=== PATIENT | female | born 2000 | race Hispanic/Latino ===

== ENCOUNTER 2020-04-03 18:05 | Emergency (ER) | payer MEDICAID, OTHER ==
[2020-04-03 18:26] LABS: BASOPHILS % (AUTO) 0.8 % (0.0-5.0); EOSINOPHILS % (AUTO) 0.5 % (0.0-8.0); HEMATOCRIT 37.9 % (36-48); LYMPHOCYTES % (AUTO) 44.9 % (21.0-51.0); MEAN CORPUSCULAR HEMOGLOBIN 30.8 pg (27.0-33.0); MEAN CORPUSCULAR HGB CONC 34.8 g/dL (32.0-36.0); MEAN CORPUSCULAR VOLUME 88.6 fL (80-100); MONOCYTES % (AUTO) 6.5 % (3.0-13.0); NEUTROPHILS % (AUTO) 47.1 % (40.0-77.0); PLATELET COUNT (AUTO) 267 K/uL (130-400); RED BLOOD CELL COUNT(AUTO) 4.28 MIL/uL (4.00-5.50); RED CELL DISTRIBUTION WIDTH 12.6 % (11.0-15.5)
[2020-04-03 18:27] LABS: APPEARANCE,URINE Clear (CLEAR); BILIRUBIN,URINE Negative (NEGATIVE); COLOR,URINE Yellow (YELLOW); GLUCOSE, URINE (UA) Negative (NEGATIVE); HCG,QUAL RESULT NEGATIVE (NEGATIVE); KETONES,URINE Trace mg/dL (NEGATIVE); LEUKOCYTE ESTERASE ,URINE Moderate (NEGATIVE); NITRATE,URINE Negative (NEGATIVE); OCCULT BLOOD,URINE Negative (NEGATIVE); PH,URINE 6.5 (5.0-8.0); PROTEIN,URINE Negative (NEGATIVE)
[2020-04-03] MEDS ORDERED: SODIUM CHLORIDE 0.9% 1000ML 1,000 ML IV ONE (18:31)
[2020-04-03] MEDS ORDERED: ONDANSETRON HCL 4 MG/2 ML VIAL ONE (18:31)
[2020-04-03 18:34] LABS: AMPHET/METH SCREEN,URINE NEGATIVE (NEGATIVE); BARBITURATE SCREEN, URINE NEGATIVE (NEGATIVE); BENZODIAZEPINES SCREEN,URINE NEGATIVE (NEGATIVE); CANNABINOID SCREEN,URINE NEGATIVE (NEGATIVE); COCAINE SCREEN,URINE NEGATIVE (NEGATIVE); OPIATE SCREEN,URINE NEGATIVE (NEGATIVE); PHENCYCLIDINE SCREEN,URINE NEGATIVE (NEGATIVE)
[2020-04-03 18:35] LABS: BACTERIA,URINE Few /HPF (None Seen); MUCUS,URINE Few LPF (None Seen); RBC,URINE 0-1 /HPF (0-1); SQUAMOUS EPITHELIAL CELL,UR Few /HPF (0-2)
[2020-04-03 18:43] LABS: ALBUMIN 4.1 g/dL (3.5-5.0); BILIRUBIN,TOTAL 0.4 mg/dL (0.2-1.0); CREATININE 0.8 mg/dL (0.5-1.5); TOTAL PROTEIN, SERUM 7.5 g/dL (6.0-8.3)
[2020-04-03 19:36] LABS: POTASSIUM 3.3 mmol/L (3.5-5.1)
== END 2020-04-03 21:11 | disposition home or self-care (01) ==
LOC: EDH 18:05
DX: R42 Dizziness and giddiness (principal)
CPT/HCPCS: 36415; 80053; 80305; 81001; 81025; 85025; 87088; 93005; 96374; 99284; J2405; J7030

== ENCOUNTER 2021-04-01 13:48 | Emergency (ER) | payer OTHER, SELFPAY ==
[~2021-04-01] VITALS: Ht 167.6 cm; Wt 59.0 kg
[2021-04-01 14:56] LABS: APPEARANCE,URINE Clear (CLEAR); BILIRUBIN,URINE Negative (NEGATIVE); COLOR,URINE Yellow (YELLOW); GLUCOSE, URINE (UA) Negative (NEGATIVE); KETONES,URINE Negative (NEGATIVE); LEUKOCYTE ESTERASE ,URINE Small (NEGATIVE); NITRATE,URINE Negative (NEGATIVE); OCCULT BLOOD,URINE Negative (NEGATIVE); PH,URINE 6.5 (5.0-8.0); PROTEIN,URINE Negative (NEGATIVE); UROBILINOGEN,URINE 0.2 mg/dL (0.2-1.0)
[2021-04-01 15:15] LABS: BACTERIA,URINE Few /HPF (None Seen); MUCUS,URINE Few LPF (None Seen); RBC,URINE 0-1 /HPF (0-1); SQUAMOUS EPITHELIAL CELL,UR Few /HPF (0-2)
[2021-04-01] MEDS ORDERED: IBUPROFEN 400 MG TABLET ONE (15:23)
[2021-04-01] MEDS ORDERED: ACETAMINOPHEN 500 MG TABLET ONE (15:23)
[2021-04-01 15:26] VITALS: BP 125/81
[2021-04-01] MEDS ORDERED: ACETAMINOPHEN 500 MG TABLET PO ONE (15:30)
[2021-04-01] MEDS ORDERED: IBUPROFEN 400 MG TABLET PO ONE (15:30)
[2021-04-01] MEDS ORDERED: IBUP-2070 PO (16:05)
[2021-04-01] MEDS ORDERED: ALBU8.5H8 IH (16:05)
[2021-04-01] MEDS ORDERED: AZIT250T9 PO (16:05)
[2021-04-01] MEDS ORDERED: PSEU120T62 PO (16:05)
== END 2021-04-01 16:23 | disposition home or self-care (01) ==
LOC: EDH 13:48
DX: U07.1 COVID-19 (principal); J06.9 Acute upper respiratory infection, unspecified; Z79.899 Other long term (current) drug therapy
CPT/HCPCS: 81001; 81025; 87635; 87804 ×2; 87880; 99283; C9803; 71045

== ENCOUNTER 2024-08-14 02:36 | Emergency (ER) | payer SELFPAY ==
[~2024-08-14] VITALS: Ht 167.6 cm; Wt 76.2 kg
[~2024-08-14 02:36] MED LIST: ALBU8.5H8 IH; AZIT250T9 PO; IBUP-2070 PO; PSEU120T62 PO
[2024-08-14 03:31] LABS: BASOPHILS # (AUTO) 0.05 K/uL (0.00-0.20); BASOPHILS % (AUTO) 0.6 % (0.0-5.0); EOSINOPHILS # (AUTO) 0.11 K/uL (0.00-0.70); EOSINOPHILS % (AUTO) 1.3 % (0.0-8.0); HEMATOCRIT 36.4 % (36-48); IMMATURE GRANULOCYTE ABSOLUTE 0.02 K/uL (0-1); LYMPHOCYTES # (AUTO) 2.8 K/uL (1.0-4.8); LYMPHOCYTES % (AUTO) 32.1 % (21.0-51.0); MEAN CORPUSCULAR HEMOGLOBIN 30.2 pg (27.0-33.0); MEAN CORPUSCULAR HGB CONC 34.1 g/dL (32.0-36.0); MEAN CORPUSCULAR VOLUME 88.6 fL (79-99); MONOCYTES # (AUTO) 0.6 K/uL (0.1-1.0); MONOCYTES % (AUTO) 6.5 % (3.0-13.0); NEUTROPHILS # (AUTO) 5.1 K/uL (1.8-7.7); NEUTROPHILS % (AUTO) 59.3 % (40.0-77.0); PLATELET COUNT (AUTO) 290 K/uL (130-400); RED BLOOD CELL COUNT(AUTO) 4.11 MIL/uL (4.00-5.50); RED CELL DISTRIBUTION WIDTH 12.7 % (11.0-15.5); WHITE BLOOD COUNT (AUTO) 8.6 K/uL (4.8-10.8)
[2024-08-14] MEDS: ondanSETRON 4MG INJ IVP ONE (03:34)
[2024-08-14] MEDS: PANTOPrazole 40 MG/VIAL IVP ONE (03:34)
[2024-08-14 03:36] LABS: APPEARANCE,URINE CLEAR (CLEAR); BILIRUBIN,URINE NEGATIVE (NEGATIVE); COLOR,URINE COLORLESS (YELLOW); GLUCOSE, URINE (UA) NEGATIVE (NEGATIVE); KETONES,URINE NEGATIVE (NEGATIVE); LEUKOCYTE ESTERASE ,URINE 500 Leu/uL (NEGATIVE); NITRATE,URINE NEGATIVE (NEGATIVE); OCCULT BLOOD,URINE MODERATE (NEGATIVE); PROTEIN,URINE 10 mg/dL (NEGATIVE); UROBILINOGEN,URINE 0.2 mg/dL (0.2-1.0)
[2024-08-14] MEDS: LACTATED RINGERS 1000ML 1,000 ML IV ONE (03:36)
[2024-08-14 03:41] LABS: CREATININE 0.7 mg/dL (0.5-1.0)
[2024-08-14 03:42] LABS: ADD UA MICROSCOPIC YES
[2024-08-14 03:52] LABS: ALBUMIN 3.8 g/dL (3.5-5.0); BILIRUBIN,TOTAL 0.3 mg/dL (0.2-1.0); TOTAL PROTEIN, SERUM 7.8 g/dL (6.0-8.3)
[2024-08-14 03:53] LABS: BACTERIA,URINE MOD /HPF (None Seen); MUCUS,URINE RARE LPF (None Seen); SQUAMOUS EPITHELIAL CELL,UR RARE /HPF (0-2); WBC,URINE 51-100 /HPF (0-1)
[2024-08-14] MEDS ORDERED: METH-662 PO (05:44)
[2024-08-14] MEDS ORDERED: CEPH500B PO (05:44)
[2024-08-14] MEDS ORDERED: NAPR-1505 PO (05:44)
--- NOTE | 2024-08-14 05:45 | ERN ---
General Chief Complaint: Abdominal Pain Stated Complaint: C/O LOWER ABD PAIN/BACK PAIN W/ PAIN WHEN VOIDING Time Seen by MD: 02:48 Source: patient History of Present Illness Initial Comments Patient is a 24-year-old female coming in complaining of multiple locations of pain. Patient states that she was got suprapubic tenderness as well as lower back pain. She states that these symptoms began a couple of days ago and progressively getting worse. Allergies: Coded Allergies: No Known Drug Allergies (Unverified Allergy, Unknown, 04/01/21) Home Meds Active Scripts Albuterol Sulfate (Proair Hfa) 8.5 Gm Hfa.aer.ad, 2 PUMP IH Q4HPRN PRN for SHORTNESS OF BREATH, #1 INHALER Prov:SUSAN FERRARI 04/01/21 Pseudoephedrine HCl (Sudafed 12 Hour) 120 Mg Tablet.er, 120 MG PO BID for 5 Days, #10 TAB Prov:SUSAN FERRARI 04/01/21 Ibuprofen (Ibuprofen) 600 Mg Tablet, 600 MG PO Q6H PRN for PAIN, #15 TAB Prov:SUSAN FERRARI 04/01/21 Azithromycin (Azithromycin) 250 Mg Tablet, 250 MG PO DAILY for z-pack for 5 Days, #6 TAB Prov:SUSAN FERRARI 04/01/21 Past Medical History Past Medical History: No Pertinent History Past Surgical History: None Family History Family History: HTN Social History Social History: Drugs, Lives with family ROS Dictation CONSTITUTIONAL: No chills, no fever, no weakness, no diaphoresis, no malaise. HEAD/FACE: No signs of trauma. EENT: No eye pain, no blurred vision, no tearing, no double vision, no ear pain, no ear discharge, no nose pain, no nasal congestion, no throat pain, no throat swelling, no mouth pain. RESPIRATORY: No cough, no orthopnea, no SOB, no stridor, no wheezing. CARDIOVASCULAR: No chest pain, no edema, no palpitations, no syncope. GASTROINTESTINAL/ABDOMINAL: abdominal pain, no constipation, no diarrhea, no nausea, no vomiting. GENITOURINARY: No abnormal discharge, no dysuria, no frequent urination, no hem aturia. No complaints of pain in the genitals. MUSCULOSKELETAL: back pain, no gout, no joint pain, no joint swelling, no musc le pain, no muscle stiffness, no neck pain. INTEGUMENTARY: No change in color, no change in hair/nails, no dryness, no lesion, no lumps, no rash. NEUROLOGICAL/PSYCH: No anxiety, not depressed, no emotional problem, no headache, no numbness, no pre-existing deficit, no history of seizures, no tremors, no weakness. HEMATOLOGIC/LYMPHATIC: Not anemic, no history of blood clots, no apparent bleeding, no bruising, glands not swollen. All Systems Negative, Except as Noted. Physical Exam Physical Exam Dictation VITAL SIGNS: Reviewed. GENERAL APPEARANCE: Alert, oriented x3, no acute distress, obese. HEAD AND FACE: Non-traumatic. EYES: PERRL, pink conjunctivas, eyelid no trauma, anterior chamber clear. EARS: Pinnas intact and no signs of trauma or erythema. Ear canals clear and no discharge. TMs no erythema. NOSE: No discharge, no bleeding. OROPHARYNX: Mouth normal, teeth no caries, tongue pink. Pharynx clear, no erythema. Tonsils no exudates, no abscesses noted. Mucous membrane moist. NECK: Supple, non-tender, no thyromegaly, no masses, no JVD, no bruits. BREAST: Deferred. CHEST: No tenderness, no crepitus, no paradoxical movement, no retractions. LUNGS: Clear, well-ventilated, symmetric, no rales, no wheezing, no rhonchi, no stridor, good breath sounds bilaterally. HEART: Regular rate, regular rhythm, no murmur, no gallops. VASCULAR: No peripheral edema. ABDOMEN: Soft, positive bowel sounds, nondistended, no guarding, lower abdominal tenderness right and left flank tenderness, no rebound, no masses no hepatomegaly, no splenomegaly, no Love's sign, no hernias. RECTAL: Deferred. GENITAL: Deferred. NEUROLOGICAL: Normal speech, gross motor function intact, gross sensory function intact. MUSCULOSKELETAL: Neck nontender, full range of motion, back bilateral piriformis muscle tenderness EXTREMITIES: Nontender, full range of motion. SKIN: Color pink, dry, no turgor, no rash, no lacerations, no abrasions, no contusions. LYMPHATICS: Deferred. Results Laboratory and Microbiology Lab and Micro Result Laboratory Tests Test 08/14/24 02:43 08/14/24 03:25 Urine Color COLORLESS (YELLOW) Urine Appearance CLEAR (CLEAR) Urine pH 6.0 (5.0-8.0) Urine Specific [place] 1.004 (1.001-1.031) Urine Protein 10 mg/dL (NEGATIVE) H Urine Glucose (UA) NEGATIVE mg/dL (NEGATIVE) Urine Ketones NEGATIVE mg/dL (NEGATIVE) Urine Occult Blood MODERATE (NEGATIVE) H Urine Nitrate NEGATIVE (NEGATIVE) Urine Bilirubin NEGATIVE mg/dL (NEGATIVE) Urine Urobilinogen 0.2 mg/dL (0.2-1.0) Urine Leukocyte Esterase 500 Franco/uL (NEGATIVE) H Urine RBC 2-5 /HPF (0-1) H Urine WBC 51-100 /HPF (0-1) H Urine Squamous Epithelial Cells RARE /HPF (0-2) Urine Bacteria MOD /HPF (None Seen) White Blood Count 8.6 K/uL (4.8-10.8) Red Blood Count 4.11 MIL/uL (4.00-5.50) Hemoglobin 12.4 g/dL (12.0-16.0) Hematocrit 36.4 % (36-48) Mean Corpuscular Volume 88.6 fL (79-99) Mean Corpuscular Hemoglobin 30.2 pg (27.0-33.0) Mean Corpuscular Hemoglobin Concent 34.1 g/dL (32.0-36.0) Red Cell Distribution Width 12.7 % (11.0-15.5) Platelet Count 290 K/uL (130-400) Mean Platelet Volume 10.3 fL (7.5-10.5) Immature Granulocyte % (Auto) 0.2 % (0-1) Neutrophils (%) (Auto) 59.3 % (40.0-77.0) Lymphocytes (%) (Auto) 32.1 % (21.0-51.0) Monocytes (%) (Auto) 6.5 % (3.0-13.0) Eosinophils (%) (Auto) 1.3 % (0.0-8.0) Basophils (%) (Auto) 0.6 % (0.0-5.0) Neutrophils # (Auto) 5.1 K/uL (1.8-7.7) Lymphocytes # (Auto) 2.8 K/uL (1.0-4.8) Monocytes # (Auto) 0.6 K/uL (0.1-1.0) Eosinophils # (Auto) 0.11 K/uL (0.00-0.70) Basophils # (Auto) 0.05 K/uL (0.00-0.20) Absolute Immature Granulocyte (auto 0.02 K/uL (0-1) Nucleated Red Blood Cells 0.0 % (0.0-0.19) Sodium Level 138 mmol/L (136-145) Potassium Level 4.0 mmol/L (3.5-5.1) Chloride Level 102 mmol/L (101-111) Carbon Dioxide Level 32 mmol/L (21-32) Blood Urea Nitrogen 8 mg/dL (7-18) Creatinine 0.7 mg/dL (0.5-1.0) Glomerular Filtration Rate Calc 124 mL/min (>90) Random Glucose 111 mg/dL (70-105) H Total Calcium 9.3 mg/dL (8.5-10.1) Total Bilirubin 0.3 mg/dL (0.2-1.0) Aspartate Amino Transf (AST/SGOT) 16 U/L (10-37) Alanine Aminotransferase (ALT/SGPT) 20 U/L (12-78) Alkaline Phosphatase 74 U/L (50-136) Total Creatine Kinase 78 U/L (21-232) Total Protein 7.8 g/dL (6.0-8.3) Albumin 3.8 g/dL (3.5-5.0) Human Chorionic Gonadotropin, Quant 0 mIU/mL (0-5) Labs Reviewed?: Yes EKG/XRAY/US/CT/MRI CT Scan Comment CT abdomen and pelvis limited due to lack of IV contrast, no acute abnormality seen, no kidney stones MDM MDM: Differential diagnosis: Sciatica, piriformis, UTI, back strain, porcelain gallbladder Patient is a 24-year-old female coming in to be evaluated for lower back and lower abdominal pain. CT disclose worsen gallbladder laboratory workup positive for urinary tract infection. Patient will be discharged with a diagnosis of urinary tract infection 0 mentioned ED Course Orders Procedure Category Date Status Time Cbc With Differential LAB 08/14/24 Complete 02:53 Comprehensive LAB 08/14/24 Complete Metabolic Panel 02:53 Hcg,Quantitative LAB 08/14/24 Complete 02:53 Urinalysis Profile LAB 08/14/24 Complete 02:53 Lactated Ringers PHA 08/14/24 Complete 1000ml (Lactated 03:00 Ondansetron 4mg Inj PHA 08/14/24 Complete (Zofran 4mg Inj) 03:00 Pantoprazole 40mg Inj PHA 08/14/24 Complete (Protonix 40mg Inj 03:00 Creatine Kinase, Total LAB 08/14/24 Complete 02:53 Culture Urine ANNMARIE 08/14/24 In Process 03:42 Ct Abdomen/Pelvis W/O CT 08/14/24 Taken Contrast 04:00 Current Medications Medications (Trade) Dose Ordered Sig/Katiana Route PRN Reason Start Time Stop Time Status Last Admin Dose Admin Lactated Ringer's 1,000 ml @ 0 mls/hr ONCE ONCE IV 08/14/24 03:00 08/14/24 03:01 DC 08/14/24 03:36 Ondansetron HCl (zoFRAN 4MG INJ) 4 mg ONCE ONCE IVP 08/14/24 03:00 08/14/24 03:01 DC Pantoprazole Sodium (PROTonix 40MG INJ) 40 mg ONCE ONCE IVP 08/14/24 03:00 08/14/24 03:01 DC Vital Signs Date Time Temp Pulse Resp B/P (MAP) Pulse Ox O2 Delivery O2 Flow Rate FiO2 08/14/24 03:38 98.1 93 18 125/73 98 Room Air* 0 21 08/14/24 02:38 98.4 97 20 118/71 100 Room Air DX & DISP Disposition: Discharge Departure Impression: Primary Impression: Urinary tract infection Additional Impression: Porcelain gallbladder Condition: Stable Scripts Naproxen (Naproxen) 375 Mg Tablet. 375 MG PO BID for 7 Days, #14 TAB Prov: ADY RODRIGUEZ MD 08/14/24 Methocarbamol (Robaxin) 750 Mg Tab 1 TAB PO BID for 7 Days, #14 TAB 0 Refills Prov: ADY RODRIGUEZ MD 08/14/24 Cephalexin Monohydrate (Keflex) 500 Mg Cap 1 CAP PO TID for 10 Days, #30 CAP 0 Refills Prov: ADY RODRIGUEZ MD 08/14/24 Additional Instructions: FOLLOW-UP WITH PRIMARY CARE PROVIDER IN 1 TO 2 DAYS. TAKE MEDICATIONS DIRECTED HERE IN THE EMERGENCY ROOM. OKAY TO CONTINUE HOME MEDICATIONS UNLESS OTHERWISE DISCUSSED DURING YOUR VISIT IN THE EMERGENCY ROOM TODAY. RETURN TO YOUR NEAREST EMERGENCY ROOM IF SYMPTOMS WORSEN OR IF THERE IS NO IMPROVEMENT. CALL 911 IF YOU NEED IMMEDIATE ASSISTANCE. TAKE TYLENOL [id number] NEEDED AND IF NO CONTRAINDICATIONS ARE PRESENT. INCREASE ORAL HYDRATION. A WOUND CULTURE OR URINE CULTURE WAS ORDERED HERE IN THE EMERGENCY ROOM DEPARTMENT PLEASE FOLLOW-UP WITH PRIMARY CARE PROVIDER AND ADVISE THEM TO GET REPEAT PORTS FROM OUR FACILITY. IF YOU HAD ANY SARA WRAP/SPLINTS THAT WERE APPLIED HERE, PLEASE DO NOT REMOVE THEM UNTIL YOU SEE YOUR PRIMARY CARE OR SPECIALTY. Referrals: Referrals: SELF,REFERRAL (PCP) LENA ALCANTAR MD, LUIS A MD Time of Disposition: 05:43 ADY RODRIGUEZ MD Aug 14, 2024 05:45
[2024-08-14 05:46] VITALS: BP 128/68; PULSE 89; RESP 20; TEMP 98.2; O2SAT 97
--- NOTE | 2024-08-14 08:39 | HMCIMG ---
CT ABDOMEN/PELVIS W/O CONTRAST REASON: flank pain COMPARISON: None. FINDINGS: Lung bases are clear. There are no focal liver lesions. There are normal-appearing kidneys.. Spleen and pancreas appear unremarkable. There is a 2 cm stone present in an otherwise normal-appearing gallbladder. Bowel loops appear unremarkable. This includes normal appearance of the appendix There is no evidence of free fluid or intraperitoneal air. There are no focal fluid collections. Aorta and retroperitoneum appear normal as do pelvic soft tissue structures. The anterior abdominal wall is intact. Osseous structures appear unremarkable. IMPRESSION: 1. Cholelithiasis without evidence of acute cholecystitis. 2. Otherwise unremarkable noncontrast CT abdomen and pelvis with attention to the kidneys. CT was performed with one or more following dose reduction techniques: automated exposure control, adjustment of the mA and kv according to patient's size, or use of a iterative reconstruction technique.
== END 2024-08-14 06:03 | disposition home or self-care (01) ==
LOC: EDH 02:36
DX: N39.0 Urinary tract infection, site not specified (principal); K80.20 Calculus of gallbladder without cholecystitis without obstruction; K82.8 Other specified diseases of gallbladder
CPT/HCPCS: 99284; 74176; 82550; 80053; 84702; 85025; 87086 ×2; 87186; 81001; 36415; J7120; J2405; J2470